=== PATIENT | female | born 1990 | race Caucasian/White ===

== ENCOUNTER 2025-02-05 09:34 | Emergency (ER) | payer SELFPAY ==
[2025-02-05] VITALS (13 sets, daily range): BP systolic 109–127; BP diastolic 65–79; PULSE 58–82; RESP 18; TEMP 36.7; O2SAT 96–100
--- NOTE | 2025-02-05 10:09 | ED.ABDPAIN ---
HPI - Abdominal Pain <Mark Carver MD - Last Filed: 02/08/25 16:15> General Chief Complaint: Abdominal Pain Stated Complaint: Stomach pain x 2 weeks Time Seen by Provider: 02/05/25 09:59 Source: patient Mode of arrival: Ambulatory History of Present Illness HPI narrative: This is a 34-year-old female complaining of upper abdominal pain. Pain has been intermittent for 2 weeks but today it has been persistent overnight, it is a somebody by nausea but not vomiting. Reports a chronic pattern of intermittent diarrhea and constipation that is unchanged. She has not had fevers, states that she has an IUD and no regular menses. No urinary symptoms. Uses alcohol only occasionally. Surgical history significant for gastric bypass for obesity and previous cholecystectomy. Gastric bypass with about 10 years ago at Located within [facility]. Patient is taking Ozempic, also says she takes Wellbutrin and Celexa, does not have established primary care provider. Related Data Previous Rx's ?Medication ?Instructions ?Recorded omeprazole 40 mg capsule,delayed 40 mg PO BID #60 caps 02/05/25 release ondansetron 4 mg disintegrating 4 mg PO Q8H PRN nausea and 02/05/25 tablet vomiting #20 tabs oxycodone 5 mg tablet 5 mg PO Q8H PRN pain #14 tabs 02/05/25 sucralfate 1 gram tablet (Carafate) 1 g PO QACHS #120 tabs 02/05/25 Allergies Allergy/AdvReac Type Severity Reaction Status Date / Time No Known Drug Allergies Allergy Verified 02/05/25 09:45 <Macy Turner MD - Last Filed: 02/05/25 17:13> History of Present Illness HPI narrative: This is a 34-year-old female complaining of upper abdominal pain. Pain has been intermittent for 2 weeks but today it has been persistent overnight, it is a somebody by nausea but not vomiting. Reports a chronic pattern of intermittent diarrhea and constipation that is unchanged. She has not had fevers, states that she has an IUD and no regular menses. No urinary symptoms. Uses alcohol only occasionally. Surgical history significant for gastric bypass for obesity and previous cholecystectomy. Gastric bypass with about 10 years ago at Located within [facility]. Patient is taking Ozempic, also says she takes Wellbutrin and Celexa, does not have established primary care provider. She does note symptoms are worse with food. Review of Systems <Macy Turner MD - Last Filed: 02/05/25 17:13> Review of Systems Narrative: Pertinent positive and negative findings as per HPI Patient History <Mark Carver MD - Last Filed: 02/08/25 16:15> Social History Smoking Status: Current every day smoker Smoking Status: Current every day smoker Exam <Mark Carver MD - Last Filed: 02/08/25 16:15> Narrative Exam Narrative: Appears uncomfortable. Vital signs noted. Oral mucosa is moist Neck is supple Lungs are clear Regular rhythm rate no murmur rub or gallop Abdomen bowel sounds present soft mild tenderness across the upper abdomen without guarding rebound or organomegaly. No CVAT Initial Vital Signs Initial Vital Signs: Vital Signs Pulse Rate 78 02/05/25 09:39 Pulse Oximetry 100 02/05/25 09:39 <Macy Turner MD - Last Filed: 02/05/25 17:13> Initial Vital Signs Initial Vital Signs: Vital Signs Pulse Rate 78 02/05/25 09:39 Pulse Oximetry 100 02/05/25 09:39 Course <Mark Carver MD - Last Filed: 02/08/25 16:15> Orders Ordered: Discontinued Medications Hydromorphone HCl (Hydromorphone 1 Mg/Ml Syringe) 1 mg IV NOW ONE Stop: 02/05/25 10:10 Last Admin: 02/05/25 10:17 Dose: 1 mg Documented By: JANETH Hydromorphone HCl (Hydromorphone 1 Mg/Ml Syringe) 1 mg IV NOW ONE Stop: 02/05/25 14:27 Last Admin: 02/05/25 14:30 Dose: 1 mg Documented By: ES Hydromorphone HCl (Hydromorphone Hcl 0.5 Mg/0.5 Ml Syringe) 0.5 mg IV NOW ONE Stop: 02/05/25 16:41 Last Admin: 02/05/25 16:55 Dose: 0.5 mg Documented By: JANETH Sodium Chloride (Normal Saline 0.9%) 1,000 mls @ 1,000 mls/hr IV BOLUS ONE Stop: 02/05/25 11:08 Last Infusion: 02/05/25 11:20 Dose: Infused Documented By: Admin: 02/05/25 10:17 Dose: 1,000 mls/hr Documented By: JANETH Ondansetron HCl (Ondansetron 4 Mg/2 Ml Inj) 4 mg IV NOW ONE Stop: 02/05/25 10:02 Last Admin: 02/05/25 10:18 Dose: 4 mg Documented By: JANETH Ondansetron HCl (Ondansetron 4 Mg/2 Ml Inj) 4 mg IV NOW ONE Stop: 02/05/25 16:21 Last Admin: 02/05/25 16:28 Dose: 4 mg Documented By: JANETH Pantoprazole Sodium (Pantoprazole 40 Mg Vial) 40 mg IV NOW ONE Stop: 02/05/25 16:41 Last Admin: 02/05/25 16:54 Dose: 40 mg Documented By: JANETH Vital Signs Vital signs: Vital Signs - 8 hr 02/05/25 09:44 Temperature 98.1 F Pulse Rate 80 Respiratory Rate 18 Blood Pressure 117/73 Pulse Oximetry 100 Oxygen Delivery Method Room Air <Macy Turner MD - Last Filed: 02/05/25 17:13> Orders Ordered: Discontinued Medications Hydromorphone HCl (Hydromorphone 1 Mg/Ml Syringe) 1 mg IV NOW ONE Stop: 02/05/25 10:10 Last Admin: 02/05/25 10:17 Dose: 1 mg Documented By: JANETH Hydromorphone HCl (Hydromorphone 1 Mg/Ml Syringe) 1 mg IV NOW ONE Stop: 02/05/25 14:27 Last Admin: 02/05/25 14:30 Dose: 1 mg Documented By: MICHAEL Hydromorphone HCl (Hydromorphone Hcl 0.5 Mg/0.5 Ml Syringe) 0.5 mg IV NOW ONE Stop: 02/05/25 16:41 Last Admin: 02/05/25 16:55 Dose: 0.5 mg Documented By: JANETH Sodium Chloride (Normal Saline 0.9%) 1,000 mls @ 1,000 mls/hr IV BOLUS ONE Stop: 02/05/25 11:08 Last Infusion: 02/05/25 11:20 Dose: Infused Documented By: Admin: 02/05/25 10:17 Dose: 1,000 mls/hr Documented By: JANETH Ondansetron HCl (Ondansetron 4 Mg/2 Ml Inj) 4 mg IV NOW ONE Stop: 02/05/25 10:02 Last Admin: 02/05/25 10:18 Dose: 4 mg Documented By: JANETH Ondansetron HCl (Ondansetron 4 Mg/2 Ml Inj) 4 mg IV NOW ONE Stop: 02/05/25 16:21 Last Admin: 02/05/25 16:28 Dose: 4 mg Documented By: JANETH Pantoprazole Sodium (Pantoprazole 40 Mg Vial) 40 mg IV NOW ONE Stop: 02/05/25 16:41 Last Admin: 02/05/25 16:54 Dose: 40 mg Documented By: JANETH Vital Signs Vital signs: Vital Signs - 8 hr 02/05/25 09:44 Temperature 98.1 F Pulse Rate 80 Respiratory Rate 18 Blood Pressure 117/73 Pulse Oximetry 100 Oxygen Delivery Method Room Air MDM - Abdominal Pain <Mark Carver MD - Last Filed: 02/08/25 16:15> Lab Data 02/05/25 09:50 02/05/25 09:50 Labs: Lab Results 02/05/25 Range/Units 09:50 WBC 4.3 L (4.5-11.0) X10^3/uL RBC 4.33 (4.0-5.2) X10^6/uL Hgb 10.9 L (12.0-16.0) g/dL Hct 33.6 L (36-46) % MCV 77.6 L (80-100) fL MCH 25.2 L (26-34) PG MCHC 32.5 (30-36) % RDW 16.5 H (11.6-14.8) % Plt Count 247 (150-400) X10^3/uL Neut % (Auto) 52.3 (50-75) % Lymph % (Auto) 35.1 (25-40) % Linn % (Auto) 11.1 (3-14) % Eos % (Auto) 0.5 L (2-4) % Baso % (Auto) 1.0 (0-2) % Neut # (Auto) 2200 (3684-2362) /uL Lymph # (Auto) 1500 (4328-1541) /uL Linn # (Auto) 500 (0-900) /uL Eos # (Auto) 0 (0-450) /uL Baso # (Auto) 0 (0-100) /uL Sodium 138 (137-145) mmol/L Potassium 4.2 (3.4-5.1) mmol/L Chloride 107 (98-107) mmol/L Carbon Dioxide 23 (22-32) mmol/L BUN 10 (7-17) mg/dL Creatinine 0.79 (0.52-1.04) mg/dL Estimated GFR > 60 (>60) mL/min BUN/Creatinine Ratio 12.7 (6-22) Glucose 86 (70-99) mg/dL Calcium 9.3 (8.4-10.2) mg/dL Total Bilirubin 0.5 (0.2-1.3) mg/dL AST 28 (14-36) IU/L ALT 15 (<35) IU/L Alkaline Phosphatase 44 (38-126) U/L Total Protein 7.6 (6.3-8.2) g/dL Albumin 4.4 (3.5-5.0) g/dL Globulin 3.2 (1.7-4.1) g/dL Albumin/Globulin Ratio 1.4 (1.0-2.8) Lipase 46 (23-300) U/L Serum , Qual Negative (Negative) <Macy Turner MD - Last Filed: 02/05/25 17:13> Lab Data Labs: Lab Results 02/05/25 Range/Units 09:50 WBC 4.3 L (4.5-11.0) X10^3/uL RBC 4.33 (4.0-5.2) X10^6/uL Hgb 10.9 L (12.0-16.0) g/dL Hct 33.6 L (36-46) % MCV 77.6 L (80-100) fL MCH 25.2 L (26-34) PG MCHC 32.5 (30-36) % RDW 16.5 H (11.6-14.8) % Plt Count 247 (150-400) X10^3/uL Neut % (Auto) 52.3 (50-75) % Lymph % (Auto) 35.1 (25-40) % Linn % (Auto) 11.1 (3-14) % Eos % (Auto) 0.5 L (2-4) % Baso % (Auto) 1.0 (0-2) % Neut # (Auto) 2200 (0582-1254) /uL Lymph # (Auto) 1500 (0690-1771) /uL Linn # (Auto) 500 (0-900) /uL Eos # (Auto) 0 (0-450) /uL Baso # (Auto) 0 (0-100) /uL Sodium 138 (137-145) mmol/L Potassium 4.2 (3.4-5.1) mmol/L Chloride 107 (98-107) mmol/L Carbon Dioxide 23 (22-32) mmol/L BUN 10 (7-17) mg/dL Creatinine 0.79 (0.52-1.04) mg/dL Estimated GFR > 60 (>60) mL/min BUN/Creatinine Ratio 12.7 (6-22) Glucose 86 (70-99) mg/dL Calcium 9.3 (8.4-10.2) mg/dL Total Bilirubin 0.5 (0.2-1.3) mg/dL AST 28 (14-36) IU/L ALT 15 (<35) IU/L Alkaline Phosphatase 44 (38-126) U/L Total Protein 7.6 (6.3-8.2) g/dL Albumin 4.4 (3.5-5.0) g/dL Globulin 3.2 (1.7-4.1) g/dL Albumin/Globulin Ratio 1.4 (1.0-2.8) Lipase 46 (23-300) U/L Serum , Qual Negative (Negative) MDM Narrative Medical decision making narrative: CC: Bandlike upper abdominal pain Complicating co-morbidities: Prior Dulce-en-Y bypass, recently moved to the area no primary care Data collected from: patient Medical records reviewed: None are available Differential considered: Common bile duct stone, pancreatitis, marginal ulcer, Dulce stasis, pancreatitis, gastritis, gastric ulcer Exam documented above, pertinent findings include: Patient has significant upper abdominal tenderness almost to the point of guarding. Lower abdomen is entirely benign remainder of exam is unremarkable Lab Test results independently reviewed as above. Pertinent findings: CBC shows white count at 4.3 with hemoglobin at 10.9 and MCV low and RDW high suggesting a microcytic anemia Chemistries are entirely reassuring with normal renal function normal liver studies Lipase is not elevated Patient is not Imaging studies independently reviewed: CT scan shows no acute pathology to explain her symptoms. Specifically appendix is normal, no evidence of internal hernia, no evidence for small bowel obstruction or associated small bowel inflammatory changes. Pancreas is normal. Consultations: Dr. Johnson surgery Treatments: Dilaudid, fluid, Zofran, Protonix Discussion: Care is initially assumed from Dr. Carver. Chart is reviewed patient is independently examined. She has a significant upper abdominal tenderness, enough that even with her negative workup I did talk with our surgeon, Dr. Johnson. Given the normal labs, absence of the gallbladder, no pancreatitis, no obvious small-bowel associated inflammatory changes the most likely explanation for her pain is a marginal ulcer. Discussed this with her. We will send her home with a small course of oxycodone for her severe pain. She does have MiraLax at home and I did explain that she is going to need this. We will place her on proton pump inhibitor, recommend Carafate for symptomatic control. She needs to establish care with the bariatric clinic for routine follow up after Dulce-en-Y bypass. She was planning to contact her surgeon in [place] to see if he had recommendations for transferring care here. She is also given phone numbers to contact primary care physician and establish care in the area. At this point there is no indication for acute surgical intervention, hospitalization or additional workup and she is safe for discharge Discharge Plan Departure Patient Disposition: Home Clinical Impression: Acute marginal ulcer, Acute upper abdominal pain, Microcytic anemia Instructions: DI for Peptic Ulcer Activity Restrictions/Additional Instructions: Thank you for coming in today Your workup was actually very reassuring. The CT scan did not show liver problems, pancreas problems, an internal hernia and your surgical interventions seem appropriate. I did discuss your care with our general surgeon because your pain was so significant. He agreed that this likely is from a marginal ulcer developing. This is a specific type of ulcer after you have had bypass surgery. I have given you discharge instructions on a peptic ulcer which is the closest discharge information that I have. Treatment is a proton pump inhibitor twice a day for 2 weeks then continuing daily until you talk with your bariatric surgeon. You like a we will need an upper endoscopy. I have also given you a prescription for Carafate, this literally coats the inside of your stomach and helps with pain control. You can stop taking this when the pain is improved Regarding pain, please avoid nonsteroidals and aspirin. I have given you small prescription for oxycodone. This will cause constipation and should be taken with MiraLax. All prescriptions were electronically transmitted to [facility] in [place] * if you do not have a primary care physician, you can contact [facility] resource [facility] at [phone]. They can help get you set up with a physician in our local community I would also recommend talking to your previous bariatric surgeon to discuss a local bariatric clinic for routine follow up. If you find that you are getting worse or develop any new symptoms, please feel free to return to the emergency department for further evaluation. Prescriptions: New omeprazole 40 mg capsule,delayed release(DR/EC) 40 mg PO BID Qty: 60 1RF sucralfate [Carafate] 1 gram tablet 1 g PO QACHS Qty: 120 0RF ondansetron 4 mg tablet,disintegrating 4 mg PO Q8H PRN (Reason: nausea and vomiting) Qty: 20 0RF oxycodone 5 mg tablet 5 mg PO Q8H PRN (Reason: pain) Qty: 14 0RF Stand Alone Forms: Patient Portal/API
[2025-02-05 10:11] LABS: Add Manual Diff / Slide Review NO; Hematocrit 33.6 % (36-46); Hemoglobin 10.9 g/dL (12.0-16.0); Lymphocytes Absolute Auto 1500 /uL (1100-4500); Mean Corpuscular HGB Conc 32.5 % (30-36); Mean Corpuscular Hemoglobin 25.2 PG (26-34); Mean Corpuscular Volume 77.6 fL (80-100); Platelet Count 247 X10^3/uL (150-400)
[2025-02-05 10:15] LABS: Alanine Aminotransferase 15 IU/L (<35); Albumin 4.4 g/dL (3.5-5.0); Albumin Globulin Ratio 1.4 (1.0-2.8); Alkaline Phosphatase 44 U/L (38-126); Blood Urea Nitrogen 10 mg/dL (7-17); Calcium 9.3 mg/dL (8.4-10.2); Carbon Dioxide 23 mmol/L (22-32); Chloride 107 mmol/L (98-107); Estimated Glomerular Filt Rate > 60 mL/min (>60); Globulin 3.2 g/dL (1.7-4.1); Glucose 86 mg/dL (70-99); HEMOLYSIS < 15 (0-50); Lipase 46 U/L (23-300); Potassium 4.2 mmol/L (3.4-5.1); Sodium 138 mmol/L (137-145); Total Protein 7.6 g/dL (6.3-8.2)
[2025-02-05] MEDS: SODIUM CHLORIDE 0.9% 1,000 ML 1000 ML IV (10:17)
[2025-02-05] MEDS: ONDANSETRON 4 MG/2 ML INJ IV ×2 (10:18→16:28)
--- NOTE | 2025-02-05 11:15 | PC.NURSE ---
[facility] here to take Pt for CT scan at [facility].
[2025-02-05 12:59] LABS: Pregnancy Test Serum,Qual Negative (Negative)
[2025-02-05] MEDS: PANTOPRAZOLE 40 MG VIAL IV (16:54)
== END 2025-02-05 17:29 | disposition home or self-care (01) ==
PROVIDERS: Emergency Medicine; Emergency Provider Emergency Medicine
DX: K28.3 Acute gastrojejunal ulcer without hemorrhage or perforation (principal); R10.10 Upper abdominal pain, unspecified; D50.9 Iron deficiency anemia, unspecified; Z97.5 Presence of (intrauterine) contraceptive device
CPT/HCPCS: 80053; 83690; 84703; 85025; 96361; 96374; 96375; 96376; 99283; 99284; J1171; J2405; J2470; J7030